=== PATIENT | male | born 1985 | race Caucasian/White ===

== ENCOUNTER 2018-02-05 00:35 | Emergency (ER) | payer OTHER ==
[2018-02-05 01:09] LABS: HEMATOCRIT 44.8 % (37.9-51.0); HEMOGLOBIN 15.3 g/dL (13.5-17.0); MEAN CORPUSCULAR HEMOGLOBIN 29.1 pg (27.0-33.4); MEAN CORPUSCULAR HGB CONC 34.2 g/dL (32.0-36.0); MEAN CORPUSCULAR VOLUME 85 fl (80-97); PLATELET COUNT 192 10^3/uL (150-450); RED BLOOD COUNT 5.27 10^6/uL (4.35-5.55); WHITE BLOOD COUNT 11.3 10^3/uL (4.0-10.5)
[2018-02-05 01:26] LABS: ALANINE AMINOTRANSFERASE 124 U/L (21-72); ALBUMIN 4.1 g/dL (3.5-5.0); ALKALINE PHOSPHATASE 87 U/L (38-126); ANION GAP 11 (5-19); ASPARTATE AMINO TRANSFERASE 47 U/L (17-59); BILIRUBIN,DIRECT 0.4 mg/dL (0.0-0.4); BLOOD UREA NITROGEN 13 mg/dL (7-20); CALCIUM 9.4 mg/dL (8.4-10.2); CARBON DIOXIDE 23 mmol/L (22-30); CHLORIDE 103 mmol/L (98-107); GLUCOSE 230 mg/dL (75-110); LIPASE 128.7 U/L (23-300); SODIUM 136.6 mmol/L (137-145)
[2018-02-05 01:28] LABS: ABSOLUTE LYMPHOCYTES# (MANUAL) 0.5 10^3/uL (0.5-4.7); ABSOLUTE MONOCYTES # (MANUAL) 0.7 10^3/uL (0.1-1.4); ABSOLUTE NEUTROPHILS# (MANUAL) 10.2 10^3/uL (1.7-8.2); BASOPHILS % (MANUAL) 0 % (0-2); EOSINOPHILS % (MANUAL) 0 % (0-6); LYMPHOCYTES % (MANUAL) 4 % (13-45); MONOCYTES % (MANUAL) 6 % (3-13); SEGMENTED NEUTROPHILS % (MAN) 90 % (42-78); TOTAL CELLS COUNTED 100; TOXIC GRANULATION SLIGHT
[2018-02-05 01:29] LABS: PLATELET COMMENT ADEQUATE
[2018-02-05] MEDS ORDERED: NORMAL SALINE 1000 ML 1,000 ML IV ONE (01:37)
[2018-02-05] MEDS ORDERED: ONDANSETRON HCL INJ/PF 4 MG/2 ML SDV IV ONE (01:38)
[2018-02-05 01:50] LABS: APPEARANCE,URINE SLIGHTLY-CLOUDY; BILIRUBIN,URINE NEGATIVE (NEGATIVE); COLOR,URINE AMBER; GLUCOSE, URINE 150 mg/dL (NEGATIVE); KETONES,URINE TRACE mg/dL (NEGATIVE); LEUKOCYTE ESTERASE,URINE NEGATIVE (NEGATIVE); NITRITE,URINE NEGATIVE (NEGATIVE); PROTEIN,URINE 30 mg/dL (NEGATIVE)
[2018-02-05 02:16] LABS: A TYPE INFLUENZA AG NEGATIVE (NEGATIVE); B INFLUENZA AG NEGATIVE (NEGATIVE)
[2018-02-05] MEDS ORDERED: INSULIN REG, HUMAN 100 UNIT/ML 3 ML VIAL (PYX) SUBCUT ONE (02:27)
[2018-02-05] MEDS ORDERED: MORPHINE SULFATE 10 MG/ML INJ IV ONE (02:27)
--- NOTE | 2018-02-05 02:31 | ER Document Report ---
ED General - General Chief Complaint: Diarrhea Stated Complaint: ABDOMINAL PAIN Time Seen by Provider: 02/05/18 01:13 Notes: Patient is a 32-year-old male who presents with upper abdominal pain and nausea. Pain is mostly in the epigastric and left upper quadrant but also has some right upper quadrant pain as well. He says his kids are recently sick with vomiting illness and fever. Today started having upper abdominal pain with some diarrhea. When he got here had a temp of 101.1. She denies any vomiting especially with this. No blood in the stool. He says he has had some GI problems in the past has had colonoscopies. He has some intermittent upper abdominal pain chronically but says this is a little bit different that is more severe and has associated diarrhea as well as the fever. He has no other complaints at this time. TRAVEL OUTSIDE OF THE [place] IN LAST 30 DAYS: No - Related Data Allergies/Adverse Reactions: No Known Allergies Allergy (Unverified 02/05/18 01:27) Past Medical History - Social History Smoking Status: Never Smoker Chew tobacco use (# tins/day): No Frequency of alcohol use: None Drug Abuse: None Family History: Reviewed & Not Pertinent Patient has suicidal ideation: No Patient has homicidal ideation: No Renal/ Medical History: Denies: Hx Peritoneal Dialysis Musculoskeltal Medical History: Reports Hx Musculoskeletal Trauma Past Surgical History: Reports: Hx Appendectomy, Hx Orthopedic Surgery - Immunizations Hx Diphtheria, Pertussis, Tetanus Vaccination: Yes Review of Systems - Review of Systems Notes: My Normal Review Basic REVIEW OF SYSTEMS: CONSTITUTIONAL : Denies fever, chills, or sweats. Denies recent illness. EENT: Denies eye, ear, throat, or mouth pain or symptoms. Denies nasal or sinus congestion. CARDIOVASCULAR: Denies chest pain. RESPIRATORY: Denies cough, cold, or chest congestion. Denies shortness of breath, difficulty breathing, or wheezing. GASTROINTESTINAL: Abdominal pain. Diarrhea. Some nausea. MUSCULOSKELETAL: Denies neck or back pain or joint pain or swelling. SKIN: Denies rash or skin lesions. NEUROLOGICAL: Denies altered mental status or loss of consciousness. Denies headache. Denies weakness or paralysis or loss of use of either side. Denies problems with gait or speech. Denies sensory or motor loss. ALL OTHER SYSTEMS REVIEWED AND NEGATIVE. Physical Exam - Vital signs Vitals: Temp Pulse Resp BP Pulse Ox 101.1 F H 106 H 16 128/71 H 94 02/05/18 00:45 02/05/18 00:45 02/05/18 00:45 02/05/18 00:45 02/05/18 00:45 - Notes Notes: General Appearance: Well nourished, alert, cooperative, no acute distress, no obvious discomfort. Well-appearing. Vitals: reviewed, See vital signs table. Head: no swelling or tenderness to the head Eyes: PERRL, EOMI, Conjuctiva clear Mouth: No decreasd moisture Lungs: No wheezing, No rales, No rhonci, No accessory muscle use, good air exchange bilaterally. Heart: Normal rate, Regular rythm, No murmur, no rub Abdomen: Normal BS, soft, No rigidity, mild upper abdominal tenderness palpation. Pain is worse over the epigastric and left upper quadrant. Extremities: strength 5/5 in all extremities, good pulses in all extremities, no swelling or tenderness in the extremities, no edema. Skin: warm, dry, appropriate color, no rash Neuro: speech clear, oriented x 3, normal affect, responds appropriately to questions. Course - Re-evaluation Re-evalutation: 02/05/18 03:55 Patient's abdominal exam is benign. He does have a history of some recurrent upper abdominal pain is sometimes worse with eating therefore I did obtain ultrasound the gallbladder which was negative for cholecystitis. Most his pain is in the epigastric and left upper quadrant. He does have some associated diarrhea and he does have fever and his kids recently had similar symptoms and therefore I suspect most likely has a viral type illness causing his symptoms. Of concern is the patient does have elevated blood sugar as well as spilling sugar in his urine. He also has very slight liver enzyme elevation with some fatty infiltration of his liver on ultrasound. He is also had some recent weight gain. Him of these findings and talked him at length about the importance of him needing to change his diet and start exercises as he can most likely reverse these findings that he is now having. I informed him that if he continues he will eventually become full diabetic. I told him that he currently has early signs of diabetes and we could start him on a medication such as metformin or he can change his diet. Patient says prefers to change his diet he does seem committed to this. He will [facility] for [facility]uation in 1-2 weeks to recheck his labs. I encourage him return to ER immediately if he has severe abdominal pain, vomiting, recurrent fevers, or she feels unwell. Patient agrees with plan will be discharged home. Dictation of this chart was performed using voice recognition software; therefore, there may be some unintended grammatical errors. - Vital Signs Vital signs: Temp Pulse Resp BP Pulse Ox 99.7 F 102 H 18 127/75 H 97 02/05/18 03:31 02/05/18 03:30 02/05/18 03:30 02/05/18 03:30 02/05/18 03:30 - Laboratory Result Diagrams: 02/05/18 00:53 02/05/18 00:53 Laboratory results interpreted by me: 02/05/18 02/05/18 02/05/18 00:53 00:53 01:09 WBC 11.3 H Seg Neuts % (Manual) 90 H Lymphocytes % (Manual) 4 L Abs Neuts (Manual) 10.2 H Sodium 136.6 L Glucose 230 H ALT 124 H Urine Protein 30 H Urine Glucose (UA) 150 H Urine Ketones TRACE H Urine Urobilinogen 2.0 H Discharge - Discharge Clinical Impression: Hyperglycemia, Fatty liver Abdominal pain Qualifiers: Abdominal location: upper abdomen, unspecified Qualified Code(s): R10.10 - Upper abdominal pain, unspecified Diarrhea Qualifiers: Diarrhea type: unspecified type Qualified Code(s): R19.7 - Diarrhea, unspecified Condition: Good Disposition: HOME, SELF-CARE Additional Instructions: Your ultrasound shows evidence of a mild fatty liver. This could be result of diet. Your blood work also shows evidence of early stages of diabetes. This also most likely is related to diet. As discussed with you it is very important that you exercise and change your diet and lose weight. If your blood sugar continues to run high you may eventually be placed on medication. Please follow-up with your doctor at the [facility] in 2 weeks for reevaluation and recheck of your blood work. Please return to the ER if you have signs of your blood sugar getting higher. Signs of elevated blood sugar are blurred vision, numbness or tingling into extremities, severe fatigue, excessive urination, excessive thirst. I suspect that your pain and nausea and diarrhea today could be related to a viral illness being that your children had similar symptoms recently and ou have a fever. Please drink lots of liquids and take medication as prescribed for your symptoms. Please return to the ER if you have recurrent fevers, worsening abdominal pain, or intractable vomiting. Prescriptions: Dicyclomine HCl [Bentyl 20 mg Tablet] 20 mg PO QID #20 tablet Ondansetron [Zofran Odt 4 mg Tablet] 1 tab PO Q4H PRN #15 tab.rapdis PRN Reason: For Nausea/Vomiting Forms: Return to Work
[2018-02-05 03:31] VITALS: BP 127/75
--- NOTE | 2018-02-05 03:40 | RADIOLOGY REPORT (SQ) ---
EXAM DESCRIPTION: U/S ABDOMEN LTD W/DOPPLER CLINICAL HISTORY: 32 years, Male, RUQ abdominal pain COMPARISON: CT, 11/29/2015 LIMITATIONS: As below. FINDINGS: Moderate hepatic steatosis. Gallbladder, negative sonographic Song's test, hepatobiliary ductal system including a 0.4 cm diameter common bile duct, 11 cm right kidney, partially obscured aorta/pancreas appear otherwise unremarkable. No ascites. IMPRESSION: No acute findings. Moderate hepatic steatosis.
== END 2018-02-05 04:00 | disposition home or self-care (01) ==
LOC: ER 00:35
DX: R10.13 Epigastric pain (principal); R10.12 Left upper quadrant pain; R10.11 Right upper quadrant pain; R11.0 Nausea; R19.7 Diarrhea, unspecified; R73.9 Hyperglycemia, unspecified; K76.0 Fatty (change of) liver, not elsewhere classified; R50.9 Fever, unspecified; R63.5 Abnormal weight gain; Z68.34 Body mass index [BMI] 34.0-34.9, adult; Z90.49 Acquired absence of other specified parts of digestive tract
CPT/HCPCS: 99284; 96361; 96374; 96375; 36415; 83690; 85025; 80053; 81001; 87804; 76705; 93976; J2270; J1815; J2405; J7030

== ENCOUNTER → 2019-12-21 | Outpatient (CLI) | payer OTHER ==
[~2019-12-21] MED LIST: DIAZEPAM 5 MG TABLET ONE
--- NOTE | 2019-12-21 15:14 | RADIOLOGY REPORT (SQ) ---
EXAM DESCRIPTION: MRI CERVICAL SPINE WITHOUT COMPLETED DATE/TIME: 12/21/2019 2:46 pm REASON FOR STUDY: M54.2 CERVICALGIA M54.2 CERVICALGIA M54.5 LOW BACK PAIN COMPARISON: None. TECHNIQUE: Sagittal and Axial imaging includes T1, T2, STIR and gradient echo sequences. LIMITATIONS: None. FINDINGS: ALIGNMENT: Normal. VERTEBRAE: Intact. BONE MARROW: Normal. No marrow replacement or reactive changes. DISCS: Normal. No significant abnormal signal or loss of height. HARDWARE: None in the spine. CORD AND BASE OF BRAIN: Normal in size and signal intensity. SOFT TISSUES: No soft tissue masses. C1-C2: No significant spinal stenosis. C2-C3: No significant spinal stenosis or exit foraminal stenosis. C3-C4: No significant disc or osteophyte. Right uncovertebral spurring. No significant spinal steno sis. Mild to moderate right exit foraminal stenosis. C4-C5: No significant disc or osteophyte. Right uncovertebral spurring. No significant spinal steno sis. Mild to moderate right exit foraminal stenosis. C5-C6: No significant spinal stenosis or exit foraminal stenosis. C6-C7: No significant spinal stenosis or exit foraminal stenosis. C7-T1: No significant spinal stenosis or exit foraminal stenosis. UPPER THORACIC: Incompletely imaged. No significant spinal stenosis or exit foraminal stenosis. OTHER: No other significant finding. IMPRESSION: NO SIGNIFICANT DISC DISEASE. NO SPINAL STENOSIS OR IMPINGEMENT. 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 TECHNICAL DOCUMENTATION: JOB ID: [id number] 2010 [email or web address]- All Rights Reserved Reading location - IP/workstation name: [email or web address]
--- NOTE | 2019-12-21 15:23 | RADIOLOGY REPORT (SQ) ---
EXAM DESCRIPTION: MRI LUMBAR SPINE WITHOUT COMPLETED DATE/TIME: 12/21/2019 2:46 pm REASON FOR STUDY: CHRONIC LOW BACK PAIN M54.2 CERVICALGIA M54.5 LOW BACK PAIN COMPARISON: None. TECHNIQUE: Sagittal and Axial imaging includes T1, T2, STIR and gradient echo sequences. Coronal T2/ HASTE imaging. LIMITATIONS: None. FINDINGS: VISUALIZED UPPER ABDOMEN: Limited evaluation. No acute or suspicious findings suggested. SEGMENTATION: No transitional anatomy. The lowest well-developed disc space is labeled L5-S1. ALIGNMENT: Anatomic. VERTEBRAE: Intact. BONE MARROW: Normal. No marrow replacement or reactive changes. Incidental hemangioma in the sacrum. DISC SIGNAL: Normal. No significant abnormal signal or loss of height. POSTERIOR ELEMENTS: Generally intact. No pars defect evident. HARDWARE: None in the spine. CORD AND CONUS: Normal in size and signal intensity. Conus at the appropriate level. SOFT TISSUES: No aortic aneurysm seen. No bulky retroperitoneal adenopathy or mass. No paraspinal mas s or fluid. L1-L2: No significant spinal stenosis or exit foraminal stenosis. L2-L3: No significant spinal stenosis or exit foraminal stenosis. L3-L4: No significant spinal stenosis or exit foraminal stenosis. L4-L5: No significant spinal stenosis or exit foraminal stenosis. L5-S1: No significant spinal stenosis or exit foraminal stenosis. LOWER THORACIC: Incompletely imaged. No stenosis seen. SACRUM: Visualized upper sacrum intact. OTHER: No other significant findings. IMPRESSION: NORMAL MRI LUMBAR SPINE. TECHNICAL DOCUMENTATION: JOB ID: [id number] 2010 [email or web address]- All Rights Reserved Reading location - IP/workstation name: [email or web address]
== END ==
LOC: RAD 12:38
PROVIDERS: ATTEND Clinical Nurse Specialist Adult Health
DX: M48.02 Spinal stenosis, cervical region (principal); M54.2 Cervicalgia; M54.5 Low back pain
CPT/HCPCS: 72141; 72148